=== PATIENT | male | born 1945 | race Caucasian/White ===

== ENCOUNTER 2019-06-13 16:11 | Inpatient (IN) | payer MEDICARE ==
[~2019-06-13] VITALS: Ht 157.5 cm; Wt 55.4 kg
[2019-06-13 17:10] LABS: BASO % 0.7 % (0.0-2.0); EOS # 0.1 (0.0-0.7); EOS % 1.4 % (0-4.0); GRAN # 5.1 (1.4-6.5); GRAN % 85.9 % (42.2-75.2); HEMOGLOBIN 16.9 g/dl (13.5-18.0); LYMPH # 0.4 (1.2-3.4); MEAN CELL VOLUME 85 fl (80.0-100.0); MEAN CORPUSCULAR HEMOGLOBIN 27 pg (27.0-31.0); MEAN CORPUSCULAR HGB CONC 32 g/dl (33.0-37.0); MEAN PLATELET VOLUME 9.4 fl (7.4-10.4); MONO # 0.3 (0.1-0.6); MONO % 5.1 % (1.7-9.3); PLATELET COUNT 321 K/mm3 (130-400); RED BLOOD COUNT 6.34 M/mm3 (4.20-5.60); REDCELL DISTRIBUTION WIDTH-CV 19.6 % (11.5-14.5)
[2019-06-13 17:12] LABS: HEMATOCRIT 53.7 % (42.0-52.0)
[2019-06-13] MEDS ORDERED: ASPIRIN 81M81 MG/TA2 PO (17:14)
[2019-06-13 17:15] LABS: INR 1.2 (0.8-3.0); PROTHROMBIN TIME 14.3 SECONDS (9.7-12.8)
[2019-06-13 17:18] LABS: PARTIAL THROMBOPLASTIN TIME 33.7 SECONDS (26.0-37.0)
[2019-06-13 17:22] LABS: ALBUMIN 3.5 gm/dL (3.5-5.0); BILIRUBIN,TOTAL 1.9 mg/dL (0.0-1.0); C-REACTIVE PROTEIN 2.9 mg/dL (0.0-0.9); CALCIUM 8.6 mg/dL (8.4-10.2); CREATININE, serum 0.77 (0.66-1.25); MAGNESIUM 2.2 mg/dL (1.6-2.3); PHOSPHOROUS 3.7 mg/dL (2.5-4.5); POTASSIUM 4.6 mmol/L (3.4-5.0); TOTAL PROTEIN 7.2 gm/dL (6.4-8.2)
[2019-06-13 17:56] LABS: TROPONIN-I 0.018 ng/mL (0.000-0.035)
[2019-06-13 19:26] LABS: ARTERIAL BLD GAS O2 SATURATION 98.4 % (92-100); ARTERIAL BLD GAS TCO2 CT 30.1; ARTERIAL BLOOD GAS BASE EXCESS 0.4 (-2-2); ARTERIAL BLOOD GAS HCO3 28.3 meq/L (22-26); ARTERIAL BLOOD GAS PCO2 58.8 mmHg (35-45)
[2019-06-13 19:27] LABS: ARTERIAL BLOOD GAS PO2 135.1 mmHg (80-100)
[2019-06-13 20:51] VITALS: BP 99/62; PULSE 93; TEMP 98.4
[2019-06-13 22:29] LABS: ARTERIAL BLD GAS O2 SATURATION 95.8 % (92-100); ARTERIAL BLD GAS TCO2 CT 26.2; ARTERIAL BLOOD GAS BASE EXCESS -3.1 (-2-2); ARTERIAL BLOOD GAS HCO3 24.6 meq/L (22-26); ARTERIAL BLOOD GAS PCO2 53.7 mmHg (35-45); ARTERIAL BLOOD GAS PO2 90.6 mmHg (80-100); ARTERIAL BLOOD GAS pH 7.28 (7.35-7.45)
[2019-06-14] VITALS (748 sets, daily range): BP systolic 97–130; BP diastolic 66–89; PULSE 60–100; TEMP 97.5–98.2; O2SAT 58–100
--- NOTE | 2019-06-14 00:04 | NUR ---
PT CHERRI SCANNED AND ONLY 100 ML RESULTED, REPORTED TO CAMRYN OROZCO, NO ORDERS GIVEN AT THIS TIME THERE IS A CONCERN FOR CHF. WILL CONTINUE TO MONITOR.
--- NOTE | 2019-06-14 00:05 | NUR ---
2010 - REPORT RECEIVED FROM TAMIKO ORTIZ. 2025 - PT ARRIVED IN UNIT, VSS, DENIES PAIN, ON 0XYMASK AT 5 LPM AND SATTING AT 93-94%. 2119 - PT ON BIPAP INITIALLY AT 35% BUT THEN WAS INCREASED TO 40% TO MAINTAIN SATS ABOVE 92%.
[2019-06-14 01:07] LABS: ARTERIAL BLOOD GAS BASE EXCESS 0.9 (-2-2); ARTERIAL BLOOD GAS HCO3 27.4 meq/L (22-26); ARTERIAL BLOOD GAS PO2 85.2 mmHg (80-100); ARTERIAL BLOOD GAS pH 7.35 (7.35-7.45)
[2019-06-14 04:48] LABS: HEMATOCRIT 47.7 % (42.0-52.0); MEAN CORPUSCULAR HEMOGLOBIN 26 pg (27.0-31.0); MEAN CORPUSCULAR HGB CONC 31 g/dl (33.0-37.0); MEAN PLATELET VOLUME 9.5 fl (7.4-10.4); PLATELET COUNT 244 K/mm3 (130-400); RED BLOOD COUNT 5.61 M/mm3 (4.20-5.60); REDCELL DISTRIBUTION WIDTH-CV 18.8 % (11.5-14.5)
[2019-06-14 04:50] LABS: HEMOGLOBIN 14.8 g/dl (13.5-18.0); MEAN CELL VOLUME 8 fl (80.0-100.0)
[2019-06-14 04:58] LABS: CALCIUM 8.3 mg/dL (8.4-10.2); CHOLESTEROL RISK RATIO 5.1; CREATININE, serum 0.63 (0.66-1.25); POTASSIUM 3.9 mmol/L (3.4-5.0)
[2019-06-14 05:17] LABS: ANISOCYTOSIS 1+; BAND 22 % (0-10); LYMPHOCYTE 7 % (20.0-51.0); NEUTROPHILS 70 % (42.0-75.2); PLATELET ESTIMATE NORMAL (NORMAL)
--- NOTE | 2019-06-14 06:28 | NUR ---
PT HAS BEEN BRADYCARDIC 45 TO LOW 50'S AND ONCE DIPPED DOWN TO LOW 30'S PER TELE. PT'S VSS, ASYMPTOMATIC. E CARE NOTIFIED, NO NEW ORDERS GIVEN AT THIS TIME, WILL CONTINUE TO MONITOR.
--- NOTE | 2019-06-14 07:27 | NUR ---
REPORT GIVEN TO TAMIKO GARCIA.
--- NOTE | 2019-06-14 08:00 | NUR ---
Shift assessment complete at this time. Plan of care reviewed at bedside with patient. Additional time taken to address any other needs or concerns. Vitals stable at this time. Pt denies pain or any other discomforts. Bed in low position, call light within reach, will continue to monitor.
--- NOTE | 2019-06-14 08:03 | NUR ---
PT SITTING UP EATING BREAKFAST AT THIS TIME. CARDIOPULM AWARE OF ABG ORDER.
--- NOTE | 2019-06-14 08:12 | NUR ---
DR MARISCAL NOTIFIED OF SURGICAL CONSULT FOR HERNIA.
[2019-06-14 08:26] LABS: ARTERIAL BLD GAS O2 SATURATION 90.3 % (92-100); ARTERIAL BLD GAS TCO2 CT 30.4; ARTERIAL BLOOD GAS BASE EXCESS 2.3 (-2-2); ARTERIAL BLOOD GAS HCO3 28.8 meq/L (22-26); ARTERIAL BLOOD GAS PCO2 52.1 mmHg (35-45); ARTERIAL BLOOD GAS PO2 60.6 mmHg (80-100); ARTERIAL BLOOD GAS pH 7.36 (7.35-7.45)
--- NOTE | 2019-06-14 13:12 | NUR ---
community placement worker met with patient to discuss discharge planning. Patient states he lives alone and that he is independent with his activities of daily living. Patient states he has not seen a physician for 20 years. Worker left a message for patient's daughter, Sayra, to discuss discharge planning further. Will await therapy evaluations to help with discharge planning. Patient would benefit from a skilled placement for rehab upon discharge. Will discuss need to establish a primary care provider with daughter, Sayra.
--- NOTE | 2019-06-14 13:27 | NUR ---
make ready worker spoke with ALFA Grady, and confirmed that therapy recommends skilled placement upon discharge. Worker spoke with Sayra, daughter and confirms that patient has not seen a physician in over 20 years and has not made an advance directive. Worker advised that a skilled placement is recommended for rehab upon discharge and left Sayra the Medicare.gov list of fci facilities. Sayra is currently at work and will obtain list this evening and discuss with patient. Case Management will follow up on Monday to secure choice form and make referrals. Worker also left a durable power of commercial manager form as patient states patient desires to complete.
--- NOTE | 2019-06-14 19:30 | NUR ---
Received report from TAMIKO Randall.
--- NOTE | 2019-06-14 19:59 | NUR ---
Bedside report given to TAMIKO Parmar.
--- NOTE | 2019-06-14 23:14 | NUR ---
assumed care from TAMIKO Parmar.
[2019-06-15] VITALS (731 sets, daily range): BP systolic 125–158; BP diastolic 80–97; PULSE 51–78; TEMP 97.5–98.1; O2SAT 63–100
[2019-06-15 05:08] LABS: HEMOGLOBIN 14.8 g/dl (13.5-18.0); MEAN CORPUSCULAR HEMOGLOBIN 26 pg (27.0-31.0); MEAN CORPUSCULAR HGB CONC 32 g/dl (33.0-37.0); MEAN PLATELET VOLUME 9.9 fl (7.4-10.4); PLATELET COUNT 262 K/mm3 (130-400); RED BLOOD COUNT 5.61 M/mm3 (4.20-5.60); REDCELL DISTRIBUTION WIDTH-CV 18.8 % (11.5-14.5)
[2019-06-15 05:09] LABS: MEAN CELL VOLUME 84 fl (80.0-100.0)
[2019-06-15 05:13] LABS: CALCIUM 8.6 mg/dL (8.4-10.2); CREATININE, serum 0.44 (0.66-1.25); POTASSIUM 4.4 mmol/L (3.4-5.0)
--- NOTE | 2019-06-15 05:28 | NUR ---
PT'S BP AT 170'S, PT ASYMTOMATIC. CIARA OROZCO NOTIFIED AND ORDERED ABG. RT AWARE. WILL CALL EXECUTIVE SOUS CHEF FOR RESLUTS OF ABG.
[2019-06-15 05:45] LABS: ANISOCYTOSIS 2+; BAND 37 % (0-10); LYMPHOCYTE 6 % (20.0-51.0); NEUTROPHILS 56 % (42.0-75.2); OVALOCYTES 1+; PLATELET ESTIMATE NORMAL (NORMAL)
[2019-06-15 05:47] LABS: BURR CELLS 1+
[2019-06-15 05:57] LABS: ARTERIAL BLD GAS TCO2 CT 29.8; ARTERIAL BLOOD GAS BASE EXCESS 5.2 (-2-2); ARTERIAL BLOOD GAS HCO3 28.7 meq/L (22-26); ARTERIAL BLOOD GAS PCO2 38.3 mmHg (35-45); ARTERIAL BLOOD GAS PO2 73.3 mmHg (80-100); ARTERIAL BLOOD GAS pH 7.49 (7.35-7.45)
--- NOTE | 2019-06-15 07:15 | NUR ---
BEDSIDE REPORT RECEIVED FROM TAMIKO ULLOA. PATIENT LYING IN BED WITH OXYMASK IN PLACE. HE HAS NO COMPLAINTS. RT IN ROOM TO DO TREATMENT. CARE TAKEN OVER AT THIS TIME.
--- NOTE | 2019-06-15 14:57 | NUR ---
REPORT GIVEN TO TAMIKO DWYER ON MEDICAL. PATIENT WILL TRANSFER UP TO ROOM 354
--- NOTE | 2019-06-15 17:56 | NUR ---
Pt up to room 354 at 1615 by bed. Pt holding on to both side rails with tight grasp. Pt is alert and disoriented. Pt unable to state where he is, situation, time. pt thinks daughter is "in the other room". Per report prior to coming to floor, pt was asking nurse to "get out of his house". Pt denies pain at this time, has LAC IV INT flushes w/o complications. Pt has poor hygiene, refused care at this time. Pt refused anything to drink. Pt on 3L NC, satting >92%. Heart RRR. breathing is even and unlabored. No other concerns at this time.
[2019-06-15 20:24] LABS: COLLECTION METHOD CLEAN CATCH
[2019-06-15 20:57] LABS: MUCOUS Present /lpf; PH 7 (5-8); SQUAMOUS EPITHELIAL None Seen /hpf; URINE APPEARANCE Clear; URINE BACTERIA None Seen /hpf; URINE BILIRUBIN Negative (NEGATIVE); URINE BLOOD Negative (NEGATIVE); URINE COLOR Yellow; URINE GLUCOSE Negative (NEGATIVE); URINE KETONE Negative (NEGATIVE); URINE LEUKOCYTE ESTERASE Negative (NEGATIVE); URINE NITRATE Negative (NEGATIVE); URINE PROTEIN(semi-quant) Negative (NEGATIVE); URINE RBC 0-2 /hpf; URINE UROBILINOGEN >=4.0 mg/dL (NEGATIVE)
[2019-06-16 05:01] VITALS: BP 114/77; PULSE 68; TEMP 97.3
--- NOTE | 2019-06-16 06:18 | NUR ---
PT LEFT BiPAP ON UP UNTIL APPROX. 0430. PT SWITCHED TO O2 VIA N.C. WILL TRY TO RE-START PT'S IV AT END OF SHIFT.
[2019-06-16 08:40] VITALS: BP 124/75; PULSE 65; TEMP 97.4
--- NOTE | 2019-06-16 11:43 | NUR ---
Pt assessment completed and charted. Medications administered per JUL. Nicotine patch placed on Lt shoulder, old patch from Lt upper shoulder/back removed. Pt is alert, partially oriented, family at bedside. Pt has RH INT IV flushes w/o complications. Pt on 4L NC. pt did walk w/ therapy, sats dropped to mid 70s. Pt put on 6L NC, sats began to rise once back in room. Pt walked w/ walker, ambulated well. Pt has poor hygiene, skin is very dry, old, tough, scaling and flaking all over. Bruising to BUE. Stage 2 ulcer to coccyx, very small w/ allevyn dressing covering, CDI. No other concerns at this time.
[2019-06-16 13:38] VITALS: BP 109/75; PULSE 84; TEMP 98
[2019-06-16 16:00] VITALS: BP 135/87; PULSE 88; TEMP 97.4
[2019-06-16 19:36] VITALS: BP 132/86; PULSE 79; TEMP 97.4
[2019-06-17 01:01] VITALS: BP 102/72; PULSE 73; TEMP 97.5
--- NOTE | 2019-06-17 02:41 | NUR ---
PT REMOVED BIPAP WITHOUT THIS RN KNOWING. O2 SATS AT 67%, AFTER PUTTING NASAL CANNULA BACK ON RETURNED TO >90%. WILL CONTINUE TO MONITOR THROUGHOUT THE NIGHT.
[2019-06-17 05:11] VITALS: BP 124/72; PULSE 71; TEMP 97.7
[2019-06-17 06:46] LABS: HEMATOCRIT 48.3 % (42.0-52.0); HEMOGLOBIN 14.4 g/dl (13.5-18.0); MEAN CELL VOLUME 88 fl (80.0-100.0); MEAN CORPUSCULAR HEMOGLOBIN 26 pg (27.0-31.0); MEAN CORPUSCULAR HGB CONC 30 g/dl (33.0-37.0); MEAN PLATELET VOLUME 9.6 fl (7.4-10.4); PLATELET COUNT 240 K/mm3 (130-400); REDCELL DISTRIBUTION WIDTH-CV 19.2 % (11.5-14.5)
[2019-06-17 07:02] LABS: ALBUMIN 3.1 gm/dL (3.5-5.0); BILIRUBIN,TOTAL 0.7 mg/dL (0.0-1.0); CALCIUM 8.7 mg/dL (8.4-10.2); CREATININE, serum 0.73 (0.66-1.25); POTASSIUM 4.7 mmol/L (3.4-5.0); TOTAL PROTEIN 6.2 gm/dL (6.4-8.2)
[2019-06-17 07:30] LABS: BAND 16 % (0-10); LYMPHOCYTE 3 % (20.0-51.0); NEUTROPHILS 80 % (42.0-75.2); OVALOCYTES 1+; PLATELET ESTIMATE NORMAL (NORMAL)
--- NOTE | 2019-06-17 08:00 | NUR ---
Patient in bed resting. Alert and oriented x 3. Assessment complete. Patient had nasal cannula out of nose, placed cannula on patient and encouraged patient to keep in place. Sacral ulcer with mepilex in place. BLE appear discolored with skin flaking. Denies pain at this time. Denies further needs at this time.
[2019-06-17 08:33] VITALS: BP 112/70; PULSE 62; TEMP 97.7
[2019-06-17 12:30] VITALS: BP 134/82; PULSE 69; TEMP 97.6
--- NOTE | 2019-06-17 13:54 | NUR ---
Pipelines Superintendent met with patient briefly to follow up on therapy's recommendation for SNF upon discharge. Patient states he and his daughter have been discussing this but did not indicate a choice had been made. 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 ALANA explained to Sayra that SNF placement would be short term to get stronger before returning home. Sayra states she will reapproach the subject with her father after work tonight. Sayra reports patient lives with her. ALANA provided update to CAMRYN Carrero. ALANA to continue to follow.
[2019-06-17 16:48] VITALS: BP 148/91; PULSE 69; TEMP 97.5
--- NOTE | 2019-06-17 19:02 | NUR ---
Patient has done well throuhout the day, has been up to restroom with stand by assist. Denies pain at this time. Assisted patient to call daughter, intermittently confused throughout the day. Denies further needs at this time. Reported off to slot shift manager.
[2019-06-18] VITALS (12 sets, daily range): BP systolic 124–170; BP diastolic 57–100; PULSE 56–73; TEMP 97.5–98.2
--- NOTE | 2019-06-18 07:37 | NUR ---
Pt had a difficult night regarding sleep. He stayed awake the majority of the night. BiPap compliant until he began to get frustrated with the sound it made. Contacted RT to take it off, and put his O2 via NC back on. The pt has been more independent by sitting on the bedside to use his urinal. Still forgetful using the call light. Bed alarm is always turned on, however, the pt knows how to turn it off, and does so. Report given to TAMIKO Little. No further concerns at this time.
[2019-06-18 09:15] LABS: BASO % 0.1 % (0.0-2.0); EOS # 0.1 (0.0-0.7); EOS % 0.7 % (0-4.0); GRAN # 6.2 (1.4-6.5); GRAN % 86.1 % (42.2-75.2); HEMATOCRIT 48.6 % (42.0-52.0); HEMOGLOBIN 14.8 g/dl (13.5-18.0); LYMPH # 0.5 (1.2-3.4); LYMPH % 7.2 % (20.0-51.0); MEAN CELL VOLUME 87 fl (80.0-100.0); MEAN CORPUSCULAR HEMOGLOBIN 27 pg (27.0-31.0); MEAN CORPUSCULAR HGB CONC 31 g/dl (33.0-37.0); MEAN PLATELET VOLUME 9.2 fl (7.4-10.4); MONO # 0.4 (0.1-0.6); MONO % 4.9 % (1.7-9.3); PLATELET COUNT 197 K/mm3 (130-400); RED BLOOD COUNT 5.58 M/mm3 (4.20-5.60)
--- NOTE | 2019-06-18 09:15 | NUR ---
Patient has remained NPO this AM for CT Needle Guided BX. Radiology nurse will come to talk with patient before signing consent. Patient's daughter is here. Burglar Alarm Installer made aware. Patient is alert and oriented x 3. Denies any pain/discomfort. Skin w/d. Very dry scaly skin all over; dandy lower extremities. Lungs diminshed throughout; No cough at this time. Resp even/unlabored. HR strong/regular. Abd soft with bowel sounds x 4 quads. PPP. No pedal edema noted. No other needs at this time.
[2019-06-18 09:24] LABS: CALCIUM 8.8 mg/dL (8.4-10.2); CREATININE, serum 0.7 (0.66-1.25); POTASSIUM 4.1 mmol/L (3.4-5.0)
--- NOTE | 2019-06-18 11:27 | NUR ---
Jacket Changer met with patient and patient's daughter, Sayra to follow up on discharge plan. SW reviewed PT recommendation for SNF and explained to patient that it would be short term for therapy. Patient is agreeable and reviewed Medicare.gov list of SNFs in his area. SW presented Patient Preference form and patient selected [facility] first preference and [facility] as second preference. Patient's daughter, Sayra provided signature. SW placed form in chart. Patient states he wants to complete DPOA-HC paperwork and wants to designate his daughter Sayra. Patient verbalized understanding about what he will be signing. SW assisted patient in filling out DPOA-HC form then witnessed patient signature along with TAMIKO Gaines-CM. SW provided patient with original and copies and placed a copy in patient chart. ALANA contacted Juan at [facility] and Cristin at [facility] then faxed referrals. SW to continue to follow.
--- NOTE | 2019-06-18 13:22 | NUR ---
Left the floor at this time for CT guided lung bx
--- NOTE | 2019-06-18 13:24 | NUR ---
PT BROUGHT INTO ROOM ON BED. TRANSFERED TO CT TABLE. O2 @ 6L/NC. MONITORING EQUIPMENT PLACED. IMAGES TAKEN AND SENT.
--- NOTE | 2019-06-18 13:49 | NUR ---
PROCEDURE COMPLETED. PT DID WELL. NO PNUEMO NOTED. CXR IN 1 HOUR. PT TAKEN BACK UPSTAIRS TO ROOM 354. REPORT TO TATA MORRISON
--- NOTE | 2019-06-18 14:10 | NUR ---
Basin Tender was contacted by Cristin at [facility] who advised they will follow referral. SW to continue to follow.
--- NOTE | 2019-06-18 14:30 | NUR ---
Patient has returned from CT post CT guided right lung bx. Patient is resting in bed. No distress or shortness of air noted. Bandaid intact just to the left of the right nipple; clean, dry and intact. Patient denies any c/o pain or discomfort
--- NOTE | 2019-06-18 17:58 | NUR ---
Patient noted to be more forgetful this PM. Asking for his daughter when she was just here to visit. He reorients easily. Continues to have work of breathing with activity. At rest he is noted less labored. 02 sats 98% on 4L/NC. Patient denies all pain. Bandaid remains intact with no drainage. Lungs remian diminshed in bilateral lobes. No needs at this time. Family in to visit
--- NOTE | 2019-06-18 19:05 | NUR ---
Report rcvd from TAMIKO Little. Pt's bandaid covering bx incision is still intact. No reddness or swelling to the right chest. Pt lungs sounds remain diminished, with slight extra effort to breathe. Pt is saturating 91% consistently on 4L O2. Assessment complete. Pt voices no needs or concerns at this time. Call light within reach. No further concerns at this time.
--- NOTE | 2019-06-18 23:45 | NUR ---
Pt is refusing BiPap tonight, replaced his Nasal Cannula and contacted RT. RT is following.
--- NOTE | 2019-06-19 03:11 | NUR ---
PATIENT REFUSED TREATMENT
[2019-06-19 04:19] VITALS: BP 124/81; PULSE 77; TEMP 97.7
[2019-06-19 07:52] LABS: BASO % 0.2 % (0.0-2.0); EOS # 0.1 (0.0-0.7); EOS % 1.1 % (0-4.0); GRAN # 5.3 (1.4-6.5); GRAN % 86.6 % (42.2-75.2); HEMOGLOBIN 15.5 g/dl (13.5-18.0); LYMPH # 0.4 (1.2-3.4); LYMPH % 6.9 % (20.0-51.0); MEAN CELL VOLUME 87 fl (80.0-100.0); MEAN CORPUSCULAR HEMOGLOBIN 27 pg (27.0-31.0); MEAN CORPUSCULAR HGB CONC 30 g/dl (33.0-37.0); MEAN PLATELET VOLUME 9.2 fl (7.4-10.4); MONO # 0.3 (0.1-0.6); MONO % 4.2 % (1.7-9.3); PLATELET COUNT 208 K/mm3 (130-400); RED BLOOD COUNT 5.86 M/mm3 (4.20-5.60)
[2019-06-19 07:54] VITALS: BP 151/88; PULSE 78; TEMP 97.7
[2019-06-19 08:03] LABS: CALCIUM 8.7 mg/dL (8.4-10.2); CREATININE, serum 0.62 (0.66-1.25); POTASSIUM 4.2 mmol/L (3.4-5.0)
[2019-06-19] MEDS ORDERED: PREDNISONE10 MG PO (10:21)
[2019-06-19] MEDS ORDERED: NICODERM C21 MG/PATC TD (10:22)
[2019-06-19] MEDS ORDERED: PERFOROMIS20 MCG/2 M IH (10:23)
[2019-06-19] MEDS ORDERED: GLUCOPHAGE500 MG/TAB PO (10:24)
[2019-06-19] MEDS ORDERED: PROAIR HFA0.09 MG/AC IH (10:24)
--- NOTE | 2019-06-19 10:25 | NUR ---
PT UP TO RECLINER FOR BREAKFAST. TO BR VOIDED AND HAD SM BM. RETURNED TO RECLINER WITH SBAX1. FAMLIY HERE AT BEDSIDE. POSSIBLE DISCHARGE TO SNF LATER TODAY.
[2019-06-19] MEDS ORDERED: HCTZ12.5TAB PO (10:26)
--- NOTE | 2019-06-19 12:08 | NUR ---
PT TO TRANSFER TO [facility] REPORT CALLED TO DIETER MORRISON.
--- NOTE | 2019-06-19 12:08 | NUR ---
REPORT TO DIETER MORRISON.
--- NOTE | 2019-06-19 14:58 | NUR ---
Videotape Sales Representative was notified by Juan at [facility] that they can accept referral and have authorization from [facility]. ALANA attended clinical rounds with the team and patient to discharge today. ALANA contacted Cristin at [facility] who advised they were still following referral and requested updates. ALANA faxed updates. ALANA met with patient and patient's daughter Sayra and advised that [facility] can accept and that [facility] was still reviewing updates. Patient's daughter stated that she was thought it was acceptable to go to [facility] if they were ready to go, but that it was ultimately up to patient. SW spoke with patient who stated he was in agreeance to go to [facility]. SW asked patient if he was sure and he confirmed again he was in agreeance. SW presented and explained IM form to patient who verbalized understanding and provided signature. SW placed form on chart. SW followed up with patient and patient's daughter on setting up primary care. Patient's daughter advised it was up to patient. Patient was provided with list of primary care physicians in [place] and patient selected [facility] and stated he had no preference between Dr. Faith and Dr. Richmond. ALANA contacted [facility] and set up an appointment for 06/26/[address] Richmond. ALANA provided appointment to Juan at [facility] and faxed discharge orders. ALANA set up transportation for 1200 and provided transport time to patient, patient's daughter, and RN. ALANA notified Cristin at [facility] that patient to discharge to [facility] and thanked her for reviewing referral. No additional needs at this time.
== END 2019-06-19 12:30 | DRG 189 ==
LOC: COL.ER 16:11 → ICU 18:21 → MEDICAL 18:21 → ICU 18:48 → MEDICAL 06-15 16:08
PROVIDERS: Emergency Medicine; Internal Medicine Pulmonary Disease; Nurse Practitioner Family; Physician Assistant; Student in an Organized Health Care Education/Training Program; ADMIT Internal Medicine
PROC: 0BBD3ZX Excision of Right Middle Lung Lobe, Percutaneous Approach, Diagnostic (ICD-10-PCS; principal; 2019-06-13)
DX: J96.01 Acute respiratory failure with hypoxia (principal); I50.33 Acute on chronic diastolic (congestive) heart failure; E43 Unspecified severe protein-calorie malnutrition; R65.10 Systemic inflammatory response syndrome (SIRS) of non-infectious origin without acute organ dysfunction; E87.2 Acidosis; E44.1 Mild protein-calorie malnutrition; J96.02 Acute respiratory failure with hypercapnia; R91.8 Other nonspecific abnormal finding of lung field; E11.9 Type 2 diabetes mellitus without complications; I11.0 Hypertensive heart disease with heart failure; F03.90 Unspecified dementia, unspecified severity, without behavioral disturbance, psychotic disturbance, mood disturbance, and anxiety; K40.90 Unilateral inguinal hernia, without obstruction or gangrene, not specified as recurrent
CPT/HCPCS: 99223-AI; 99232-AI; 99233-AI; 99239; A4216; J0456; J0696; J1650; J1815; J2920; J2930; J7030; J7050; J7120; J7512

== ENCOUNTER → 2019-07-05 | Outpatient (CLI) | payer MEDICARE ==
[~2019-07-05] MED LIST: ASPIRIN 81M81 MG/TA2 PO; GLUCOPHAGE500 MG/TAB PO; HCTZ12.5TAB PO; NICODERM C21 MG/PATC TD; PERFOROMIS20 MCG/2 M IH; PREDNISONE10 MG PO; PROAIR HFA0.09 MG/AC IH
[2019-07-05 20:36] LABS: HEMATOCRIT 48.2 % (42.0-52.0); HEMOGLOBIN 15.4 g/dl (13.5-18.0); MEAN CELL VOLUME 84 fl (80.0-100.0); MEAN CORPUSCULAR HEMOGLOBIN 27 pg (27.0-31.0); MEAN CORPUSCULAR HGB CONC 32 g/dl (33.0-37.0); MEAN PLATELET VOLUME 10.2 fl (7.4-10.4); PLATELET COUNT 507 K/mm3 (130-400); RED BLOOD COUNT 5.72 M/mm3 (4.20-5.60); REDCELL DISTRIBUTION WIDTH-CV 19.1 % (11.5-14.5)
[2019-07-05 20:55] LABS: ALBUMIN 3.7 gm/dL (3.5-5.0); CALCIUM 9.3 mg/dL (8.4-10.2); CREATININE, serum 0.51 (0.66-1.25); POTASSIUM 4.7 mmol/L (3.4-5.0); TOTAL PROTEIN 6.7 gm/dL (6.4-8.2)
[2019-07-05 21:16] LABS: ANISOCYTOSIS 1+; BAND 10 % (0-10); EOSINOPHIL 1 % (0-4); LYMPHOCYTE 8 % (20.0-51.0); MICROCYTOSIS 1+; NEUTROPHILS 77 % (42.0-75.2); PLATELET ESTIMATE INCREASED (NORMAL)
[2019-07-05 21:24] LABS: THYROID STIMULATING HORMONE 0.738 uIU/mL (0.465-4.680)
== END ==
LOC: ZLAB.STJ 17:24 → COL.LAB 17:24
PROVIDERS: Family Medicine
DX: I50.33 Acute on chronic diastolic (congestive) heart failure (principal)

== ENCOUNTER 2019-09-04 22:37 | Inpatient (IN) | payer MEDICARE ==
[~2019-09-04] VITALS: Ht 154.9 cm; Wt 55.0 kg
[2019-09-04] MEDS ORDERED: SPIRIVA RE2.5 MCG/Ac IH (23:00)
[2019-09-04 23:11] LABS: BASO % 0.4 % (0.0-2.0); EOS # 0.3 (0.0-0.7); GRAN # 8.3 (1.4-6.5); GRAN % 78.3 % (42.2-75.2); HEMATOCRIT 43.2 % (42.0-52.0); HEMOGLOBIN 14.1 g/dl (13.5-18.0); LYMPH # 0.8 (1.2-3.4); LYMPH % 7.6 % (20.0-51.0); MEAN CELL VOLUME 88 fl (80.0-100.0); MEAN CORPUSCULAR HEMOGLOBIN 29 pg (27.0-31.0); MEAN CORPUSCULAR HGB CONC 33 g/dl (33.0-37.0); MEAN PLATELET VOLUME 9.4 fl (7.4-10.4); MONO # 0.7 (0.1-0.6); MONO % 6.7 % (1.7-9.3); PLATELET COUNT 549 K/mm3 (130-400); RED BLOOD COUNT 4.93 M/mm3 (4.20-5.60); REDCELL DISTRIBUTION WIDTH-CV 17.6 % (11.5-14.5)
[2019-09-04 23:19] LABS: ARTERIAL BLD GAS O2 SATURATION 96.1 % (92-100); ARTERIAL BLD GAS TCO2 CT 31.4; ARTERIAL BLOOD GAS PCO2 45.6 mmHg (35-45); ARTERIAL BLOOD GAS PO2 82.6 mmHg (80-100); ARTERIAL BLOOD GAS pH 7.44 (7.35-7.45)
[2019-09-04 23:20] LABS: ALBUMIN 3.8 gm/dL (3.5-5.0); BILIRUBIN,TOTAL 0.8 mg/dL (0.0-1.0); CALCIUM 9.9 mg/dL (8.4-10.2); CREATININE, serum 0.56 (0.66-1.25); POTASSIUM 4.2 mmol/L (3.4-5.0); TOTAL PROTEIN 7.3 gm/dL (6.4-8.2)
[2019-09-04 23:33] LABS: TROPONIN-I 0.072 ng/mL (0.000-0.035)
[2019-09-05] VITALS (715 sets, daily range): BP systolic 100–129; BP diastolic 63–78; PULSE 64–98; TEMP 97.5–98; O2SAT 42–100
--- NOTE | 2019-09-05 01:05 | NUR ---
Report received from TAMIKO Hines in the ED. Patient will be brought over soon.
--- NOTE | 2019-09-05 01:40 | NUR ---
Patient arrives at this time via ED cart. Patient arrives with clothing, shoes, and his personal wood cane. Patient moves self to unit bed via slide. Patient becomes short of breath. Patient had removed oxymask. Replaced and O2 sats slowly came back to 94% on 10L OM. Assessment complete. Patients lungs have fine crackles and are diminished in all monroy. HR and rhythm are regular with normal S1 and S2 heard. Bowel sounds active x4. patient has generalized bruising all over his extremities with a few on his trunk. Patient has mostly healed wounds on both his shins. They are tight and warm to the touch. Patient states that he has been seeing wound care and that "a lady comes and puts stuff on them". Patients coccyx is reddened. Patient has a large inguinal hernia with a distended scrotum. Patient states it is not painful nor is he having any pain. He is short of breath with any exertion. Changed patient to a HFNC to help with saturations and patients sats improved. Patient is alert and only oriented to self, he rambles when speaking and gets off topic easily. He does not know where he is or in what town, but then later speaks about [facility] and his daughter that lives in [place]. He doesnt not understand why he is here in the hospital. Explained several times, patient claims to understand. Patient is refusing to put on the gown right now or to remove his pants. Patient does have a brief on, and it is dry. Patient has no further needs at this time. Patient does have yellow socks on and bed alarm placed. signage outside the door for isolation precautions and fall risk. Will continue to monitor. Call light within reach.
[2019-09-05] MEDS ORDERED: ONE-A-DAY ESSE1 EACH PO (03:53)
[2019-09-05] MEDS ORDERED: GERI HYDROLAC TOP (03:54)
[2019-09-05] MEDS ORDERED: VITAMIND3 5000 PO (03:55)
[2019-09-05] MEDS ORDERED: B-121000 MCG PO (03:55)
[2019-09-05] MEDS ORDERED: FOLIC ACID 11 MG/TA1 PO (03:56)
--- NOTE | 2019-09-05 04:30 | NUR ---
Patient has calmed down now and is no longer pulling at lines. he is resting comfortably watching TV. No further needs at this time. Will continue to monitor. Call light within reach. Bed alarm on.
--- NOTE | 2019-09-05 07:46 | NUR ---
Bedside report given to TAMIKO Randall
--- NOTE | 2019-09-05 08:00 | NUR ---
Shift assessment complete at this time. Plan of care reviewed at bedside with patient. Additional time taken to address any needs or concerns of patient or family. Vitals stable at this time. Pt denies pain or any other discomforts. Bed in low position, call light within reach, will continue to monitor.
--- NOTE | 2019-09-05 09:59 | NUR ---
ALANA contacted the patient's daughter, Sayra (ph#[phone]), to discuss discharge plan. The patient has been residing at [facility] for SNF. The patient's DPOA-HC is in EMR. His DPOA-HC is Sayra. Sayra reports that the plan is for the patient to return back to [facility] upon discharge. The patient is pending results for COVID-19. ALANA notified Juan at [facility]. ALANA to fax updates to [facility] and will continue to follow.
--- NOTE | 2019-09-05 12:00 | NUR ---
Pt resting comfortably in bed. Denies pain or any other discomforts. Vitals stable at this time. Bed in low position, call light within reach, will continue to monitor.
--- NOTE | 2019-09-05 16:00 | NUR ---
Pt resting comfortably in bed. Denies pain or any other discomforts. Bed in low position, call light within reach. Vitals stable at this time. Will continue to monitor.
--- NOTE | 2019-09-05 19:29 | NUR ---
Bedside report given to TAMIKO Pulido.
--- NOTE | 2019-09-05 19:30 | NUR ---
RECEIVED REPORT FROM TAMIKO SHI. PT SITTING UP IN BED FINISHING UP DINNER. VSS. CALL LIGHT WITHIN REACH. PT WATCHING TV. NO ACUTE S/S OF DISTRESS NOTED.
--- NOTE | 2019-09-05 21:00 | NUR ---
PT ABLE TO STAND WITH NURSE HOLDING HANDS OR USING CANE BUT IS UNSTEADY IF NOT HOLDING ONTO SOMETHING. PT ABLE TO STATE YEAR IS 2020 AND IS IN THE HOSPITAL BUT IS UNABLE TO RECALL WHICH HOSPITAL OR WHO PRESIDENT IS. PT KNOWS HE LIVES AT [facility]. PT REQUESTS NURSE TO LET HIM KNOW IF HE SEEMS TO BE REPEATING HIMSELF. PT REQUESTS A SNACK, GIVEN. VSS. PT APPEARS TO GET INCREASE SHOB WITH STANDING BUT IS ABLE TO TAKE NURSE'S INSTRUCTION ON HOW TO SLOW DOWN HIS BREATHING. PT NOTED TO BE ON 6L VIA HFNC. NO INCREASE IN HR WITH STANDING. PT ABLE TO HELP IS BATH. ASSISTED BACK TO BED. CALL LIGHT WITHIN REACH.
[2019-09-06] VITALS (510 sets, daily range): BP systolic 106–158; BP diastolic 68–81; PULSE 64–83; TEMP 97.5–98.2; O2SAT 76–100
[2019-09-06 06:15] LABS: MEAN CELL VOLUME 91 fl (80.0-100.0); MEAN CORPUSCULAR HGB CONC 32 g/dl (33.0-37.0); MEAN PLATELET VOLUME 9.6 fl (7.4-10.4); PLATELET COUNT 475 K/mm3 (130-400); RED BLOOD COUNT 4.03 M/mm3 (4.20-5.60); REDCELL DISTRIBUTION WIDTH-CV 17.5 % (11.5-14.5)
[2019-09-06 06:21] LABS: HEMATOCRIT 36.5 % (42.0-52.0); HEMOGLOBIN 11.7 g/dl (13.5-18.0); MEAN CORPUSCULAR HEMOGLOBIN 29 pg (27.0-31.0)
[2019-09-06 06:32] LABS: BILIRUBIN,TOTAL 0.3 mg/dL (0.0-1.0); CALCIUM 9.1 mg/dL (8.4-10.2); CREATININE, serum 0.52 (0.66-1.25); POTASSIUM 4.2 mmol/L (3.4-5.0)
[2019-09-06 07:19] LABS: BAND 2 % (0-10); EOSINOPHIL 2 % (0-4); LYMPHOCYTE 7 % (20.0-51.0); METAMYELOCYTE 3 % (0-0); NEUTROPHILS 82 % (42.0-75.2); PLATELET ESTIMATE INCREASED (NORMAL)
--- NOTE | 2019-09-06 11:59 | NUR ---
Attempted to call daughter, Sayra Meeks, @ [phone] today after recieving palliative care consult for patient. He is quite confused and in COVID 19 isolation at this point. I did leave message for daughter and hope she will return my call later today.
--- NOTE | 2019-09-06 12:00 | NUR ---
Pt resting comfortably in bed. Denies pain or any other discomforts at this time. Vitals stable at this time. Bed in low position, call light within reach, will continue to monitor.
--- NOTE | 2019-09-06 13:36 | NUR ---
A palliative care consult was ordered. ALANA staffed with Palliative Care, Taylor. Taylor has attempted to contact the patient's daughter, Sayra, to discuss goals of care. ALANA to fax updates to Juan at [facility] and will continue to follow.
--- NOTE | 2019-09-06 13:55 | NUR ---
Again attempted to contact daughter, Sayra @ [phone]. I left a voicemail message again for her with my contact information. There is not another phone number available. Also spoke with Landy Bonilla about situation and she verifies there is only one number for daughter.
--- NOTE | 2019-09-06 15:16 | NUR ---
Finally reached [facility], Sayralucien Meeks by phone. She advised me that they are already working on hospice at the assisted. They are waiting on information from the custodial care insurance and then she will sign the paperwork. She was very displeased that now we were caling her about this as she has already talked about this with [facility] people and shouldn't have to do this again. She is waiting for them to have paperwork for her to sign, she reported. When I asked what I could do to help her, she replied I "could get off the phone and let her eat her lunch"! She was not interested in hearing about what hospice was, whether she could visit her father, hospice organizations, etc and made that very clear that she didn't want to listen to all this. I am really not sure that she understands what hospice is or what is all about. I did report this phone call to Maria T Giron social economist. At this time Sayra states that Allyssa Machuca is working on this and we need to not bother her with this again.
--- NOTE | 2019-09-06 16:06 | NUR ---
Palliative Care Nurse, Taylor, was able to get a hold of the patient's daughter (Sayra). Sayra informed Taylor that she has already had this conversation with [facility] and is under the impression that [facility] is already working on getting him on hospice and that they are waiting on his long-term care insurance to kick in. ALANA notified Juan at [facility] on this. Juan reports that they had the hospice conversation with the daughter, but then he was admitted to the hospital. He states that he will talk to his director, Talita, whose been working with the daughter. He states they will come up with a game plan then update ALANA. ALANA to continue to follow.
--- NOTE | 2019-09-06 19:35 | NUR ---
Assessment complete. Resting in bed, tevevision on. Conversation confused. Denies pain. Denies needs at this time.
[2019-09-07] VITALS (360 sets, daily range): BP systolic 128–152; BP diastolic 82–93; PULSE 74–88; TEMP 97.4–97.9; O2SAT 74–100
--- NOTE | 2019-09-07 12:00 | NUR ---
Patients O2 dropped to 70s, was noted to be on 5L via HFNC. Was increased to 8L without success, increased to 10 and called RT who was able to assist and patient returned to low 90%. Dr. Rodney rounded and saturations were in high 90%, he instructed to decrease oxygen which patient tolerated well.
--- NOTE | 2019-09-07 19:49 | NUR ---
1615 patient sitting on side of bed, O2 saturation in mid 80s, did increase to 8L, did bring patient to low 90s where he remained the rest of the shift. Report given to oncoming nurse.
--- NOTE | 2019-09-07 20:00 | NUR ---
PATIENT APPEARS ALERT AND ORIENTED, UNABLE TO RECALL WHERE HE IS, OR THE SITUATION HE IS IN,CALM REASSURING TO PRESENT TIME, WILL INFORM STAFF HE KNOWS WHATS GOING ON
[2019-09-08] VITALS (23 sets, daily range): BP systolic 103–148; BP diastolic 64–88; PULSE 65–92; TEMP 96.6–97.8; O2SAT 85–100
--- NOTE | 2019-09-08 01:35 | NUR ---
ADMINISTERED ORAL MORPHINE X 2 IN THE LAST 2 HOURS FOR SHORTNESS OF BREATH, PATIENT IS TRYING TO ADAPT TO BIPAP/CANNULA, PATIENT IS COOPERATIVE, jUST STATES "I FEEL LIKE I'M NOT GETTING AIR...
--- NOTE | 2019-09-08 07:45 | NUR ---
Bedside shift report received from TAMIKO Andrade. Patient is sleeping, but easily aroused. Full assessment completed. Vital signs stable. Bed in lowest position, call light within reach, side rails up x3. Patient has no complaints or concerns at this time.
[2019-09-08 14:32] LABS: HEMATOCRIT 41.2 % (42.0-52.0); HEMOGLOBIN 13.5 g/dl (13.5-18.0); MEAN CELL VOLUME 88 fl (80.0-100.0); MEAN CORPUSCULAR HEMOGLOBIN 29 pg (27.0-31.0); MEAN CORPUSCULAR HGB CONC 33 g/dl (33.0-37.0); MEAN PLATELET VOLUME 9.1 fl (7.4-10.4); PLATELET COUNT 535 K/mm3 (130-400); RED BLOOD COUNT 4.67 M/mm3 (4.20-5.60); REDCELL DISTRIBUTION WIDTH-CV 17.2 % (11.5-14.5)
[2019-09-08 14:55] LABS: CALCIUM 9.4 mg/dL (8.4-10.2); CREATININE, serum 0.71 (0.66-1.25); POTASSIUM 4.6 mmol/L (3.4-5.0)
[2019-09-08 16:04] LABS: BAND 10 % (0-10); LYMPHOCYTE 5 % (20.0-51.0); METAMYELOCYTE 1 % (0-0); MYELOCYTE 1 % (0-0); NEUTROPHILS 81 % (42.0-75.2)
[2019-09-08 16:05] LABS: ANISOCYTOSIS 1+; PLATELET ESTIMATE INCREASED (NORMAL)
--- NOTE | 2019-09-08 19:24 | NUR ---
Bedside shift report given to TAMIKO Andrade and care handed over at this time.
[2019-09-09] VITALS (7 sets, daily range): BP systolic 121–149; BP diastolic 69–90; PULSE 67–90; TEMP 97.4–98.3
--- NOTE | 2019-09-09 01:22 | NUR ---
PATIENT TRASNSFERRED TO MEDICAL FLOOR BY WHEEL CHAIR, ON AT 8 L
--- NOTE | 2019-09-09 01:31 | NUR ---
PATIENT ARRIVED TO MEDICAL UNIT. THIS NURSE IS TAKING OVER CARE. HE ARRIVED VIA WC. PATIENT STATED THAT HE WAS FEELING SHORT OF BREATH. PATIENT IS ON 8L AND 92%. PATIENT IS ABLE TO TELL ME THE YEAR AND BUT UNSURE OF WHERE HE IS OR PRESIDENT. PATIENT IS VERY TALKATIVE AND WOULD MAKE YOU BELIEVE THAT HE IS ORIENTATED. LUNG SOUNDS ARE DIMINISHED IN ALL FEILDS. PULSES ARE PRESENT. BLE ARE DISCOLORED WITH SOME SCRATCHES NOTED TO THE SHINS. PATIENT IS ORIENTATED TO THE ROOM. BED ALARM ON AND CALL LIGHT WITHIN REACH.
--- NOTE | 2019-09-09 02:59 | NUR ---
CALLED AN NOTIFIED Naseem SANTIAGO OF THE PATIENT HAVING AN 8 BEAT RUN OF PAT PER TELEY. MORNING LABS TO BE DONE NOW AND ADD MAG AND PHOS. BLOOD PRESSURE IS 125/69, 99%, AND PULSE OF 67 BPM. PATIENT DENIES ANY CHEST PAIN, SHORTNESS, OR DIZZINESS.
[2019-09-09 03:10] LABS: BASO % 0.2 % (0.0-2.0); EOS # 0.1 (0.0-0.7); GRAN # 9.9 (1.4-6.5); GRAN % 86.2 % (42.2-75.2); HEMATOCRIT 37.9 % (42.0-52.0); HEMOGLOBIN 12.7 g/dl (13.5-18.0); LYMPH # 0.5 (1.2-3.4); LYMPH % 4.7 % (20.0-51.0); MEAN CELL VOLUME 87 fl (80.0-100.0); MEAN CORPUSCULAR HEMOGLOBIN 29 pg (27.0-31.0); MEAN CORPUSCULAR HGB CONC 34 g/dl (33.0-37.0); MEAN PLATELET VOLUME 9.1 fl (7.4-10.4); MONO # 0.6 (0.1-0.6); MONO % 4.9 % (1.7-9.3); PLATELET COUNT 533 K/mm3 (130-400); RED BLOOD COUNT 4.36 M/mm3 (4.20-5.60); REDCELL DISTRIBUTION WIDTH-CV 16.9 % (11.5-14.5)
[2019-09-09 03:21] LABS: ALBUMIN 3.4 gm/dL (3.5-5.0); BILIRUBIN,TOTAL 0.5 mg/dL (0.0-1.0); CALCIUM 9.2 mg/dL (8.4-10.2); CREATININE, serum 0.78 (0.66-1.25); MAGNESIUM 2.3 mg/dL (1.6-2.3); PHOSPHOROUS 3.1 mg/dL (2.5-4.5); POTASSIUM 5.1 mmol/L (3.4-5.0); TOTAL PROTEIN 6.4 gm/dL (6.4-8.2)
--- NOTE | 2019-09-09 03:25 | NUR ---
CRITICAL LAB OF 88 FOR CHLORIDE. CALLED Naseem SANTIAGO AND NO ANSWER, WILL TRY AGAIN IN A COUPLE MINUTES
--- NOTE | 2019-09-09 04:23 | NUR ---
PATIENT IS RESTING IN BED WITH HOB ELEVATED
--- NOTE | 2019-09-09 04:26 | NUR ---
TELEY CALLED AND THE PATIENT WENT INTO SVT FOR A 11 BEAT RUN WITH A RATE OF 150. BP 121/74. A PAMELA TO BE NOTIFIED
--- NOTE | 2019-09-09 04:54 | NUR ---
patient came up to medical from the ICU in the middle of the shift. patient was able to tell me his birthday and the year but could not tell me anything else other than that. patient then had an 8 beat run of PAT where Naseem Leggett got morning labs on the patient and NORMAL SALINE was started. patient then had a 11 beat run of SVT with rates in the 150's. A Oleksandr 5mg of lopressor to be given now X1 to help settle his heart down. patient has been asleep through these episodes and blood pressure has not been affected. patient denies any other needs at this time. will report off to day shift upon their arrival
--- NOTE | 2019-09-09 09:00 | NUR ---
Assessment complete. Patient sitting at side of bed. Frustrated with his care but could not clearly state why. He was under the impression that we had stolen his things and feels as though we are treating him as a "convict". I explained to him he was transferred to the medical floor but he was not following. IV site CD&I, IV fluids running. He denies pain or discomfort. He is alert and partially oriented at this time. Fall precautions are in place. no other needs. Call light in reach.
--- NOTE | 2019-09-09 09:30 | NUR ---
I went in and spoke with Mr Meeks at bedside. He tells me he is not convinced that he has cancer but feels he "may have already been treated for it at the lab". He states he would want treatment but at this point I am not at all sure he is understanding what I am talking about. He feels that returning to [facility] would be ok with him. I will try to reach his daughter Sayra this morning with social media director Mandi also director international.
[2019-09-09 09:32] LABS: PATHOLOGY DIFF REVIEW OK
--- NOTE | 2019-09-09 09:40 | NUR ---
Attempted to call Daughter Sayra Meeks at [phone]. She did not answer so I left a message requesting a call back.
--- NOTE | 2019-09-09 10:17 | NUR ---
Attempted to call Sayra Meeks again and again left message requesting call back.
--- NOTE | 2019-09-09 10:38 | NUR ---
ALANA faxed updates to Juan at [employer].
--- NOTE | 2019-09-09 10:38 | NUR ---
ALANA and [facility] care nurse attempted to contact the patient's daughter, Sayra, left message.
--- NOTE | 2019-09-09 12:28 | NUR ---
First visit from the home paraprofessional. No needs right now.
--- NOTE | 2019-09-09 12:52 | NUR ---
Attempted to speak with pt's daughter, Sayra Meeks, again today. She did answer her phone and clearly stated"Quit calling me and leaving messages" "I can't do anything until [employer] does what they need to do. Quit leaving me F-cking messages--I've done everything that I can do". She then stated to send her father to [facility] and hung up! I will let social media content specialist know the results of this phone call but am getting no where with this daughter.
--- NOTE | 2019-09-09 13:54 | NUR ---
Sayra, the patient's daughter contacted [facility] care nurse and told her not to call her again and to just send the patient to [place] [facility] then hung up on her. ALANA contacted Juan to inform him of this conversation. Juan reports Talita and the DON will contact Sayra to discuss hospice and he will contact ALANA once that conversation is had. Will continue to monitor.
--- NOTE | 2019-09-09 14:40 | NUR ---
Juan from [facility] reports that the patient's daughter, Sayra was agreeable to [facility] for the patient. Juan provided [facility]'s admission coordinator, Landy Sigala ([phone]) to get fax number. Juan reports they could take the patient back as early as tomorrrow. ALANA contacted Landy, left message. ALANA informed team. Will continue to monitor.
--- NOTE | 2019-09-09 15:10 | NUR ---
Landy from [facility] reports her fax # [phone] and she reports they have been following the patient. ALANA faxed referral. Will continue to monitor.
--- NOTE | 2019-09-09 17:20 | NUR ---
Pt had a good day. He is intermittently confused and usually an angry confusion in which he takes out on staff stating that "we are not caring for him" or "stealing his things". When he is not upset he is pleasant. Iv was leaking at one point but I rewrapped with fresh coban and have no had an issue since. Pallative care consult was done and pallative care is in place. Pt has denied pain all day. he has urinated in the urinal multiple times today. Large scrotal hernia noted. no other needs at this time. Call light in reach.
--- NOTE | 2019-09-09 20:00 | NUR ---
At time of assessment, patient is awake sitting in bed. He is oriented to self and birthdate but asks "how old am I?". He knows where he is but is forgettful and impulsive, despite being reoriented to the call button and use of nasal cannula. His lung sounds have audible wheezes in all lobes on expiration and inspiration. His heart sounds are normal/regular. He does not have any edema but his extremities have a reddish/purple discoloration. He does not complain of any pain. Will continue to monitor.
[2019-09-10 00:19] VITALS: BP 112/73; PULSE 73; TEMP 97.6
[2019-09-10 04:01] VITALS: BP 122/74; PULSE 64; TEMP 98
--- NOTE | 2019-09-10 04:48 | NUR ---
Patient has been impulsive and forgettful throughout the night but is currently sleeping. His L forearm IV started leaking so a new IV was initiated in his R forearm, due to ordered IV solu-medrol. He is still only partially oriented and requires frequent reorientation. He is still on at 6L via high flow nasal cannula, which he takes off often due to confusion. Will continue to reorient and monitor as needed.
[2019-09-10 07:43] VITALS: BP 120/76; PULSE 66; TEMP 97.6
[2019-09-10] MEDS ORDERED: IPRATROPIUM BROM3 M1 IH (09:16)
[2019-09-10] MEDS ORDERED: ROXANOL 20MG20 MG/ML SL (09:16)
[2019-09-10] MEDS ORDERED: DULCOLAX S10 MG/SUPP RC (09:17)
[2019-09-10] MEDS ORDERED: ATIVAN 1MG T1 MG/TAB PO (09:17)
[2019-09-10] MEDS ORDERED: TRANSDERM-0.5 MG/21 TD (09:17)
[2019-09-10] MEDS ORDERED: ARTIFICIAL TEAR15 M7 OP (09:18)
--- NOTE | 2019-09-10 09:25 | NUR ---
SW presented the IM form to the patient. The patient understood and signed the form.
--- NOTE | 2019-09-10 09:55 | NUR ---
SW attempted to contact the patient's daughter, left message. Hospitalist wanted to discuss the patient going back to [facility] with hospice. Will continue to monitor.
[2019-09-10 11:26] VITALS: BP 134/74; PULSE 77; TEMP 97.6
--- NOTE | 2019-09-10 11:27 | NUR ---
The patient is to tentatively discharge today, 09/09 to [place] [facility] with [facility]. Hospitalist spoke to the patient's daughter, Sayra and she was in agreeance with the patient returning to [facility] with hospice. Sayra did not return my call. Juan from [facility] reports they can transport the patient at 1215. ALANA contacted Landy from [facility] to inform her of transport time. All were in agreeance. ALANA faxed discharge orders. There are no additional needs at this time.
--- NOTE | 2019-09-10 11:27 | NUR ---
Pt assessment completed and charted. Medications administered per JUL. Pt is alert, partially oriented. Pt was on 6L HF NC. RT in to see pt, bumped O2 up to 10L NC. Pt independent in room w/ cane. Pt has RFA INT IV that flushes w/o complications. Pt denies any pain. Pt has labored/shallow breathing. Pt denies any concerns at this time. Pt to discharge this afternoon.
[2019-09-10 11:39] VITALS: BP 134/74; PULSE 77; TEMP 97.6
--- NOTE | 2019-09-10 13:13 | NUR ---
Pt escorted out via WC w/ 10L HF NC. Automatic Print Developer from [facility] at ER entrance. No further needs at this time. RWR INT IV dc'd w/ catheter tip intact and no complications.
== END 2019-09-10 12:45 | disposition hospice, inpatient (51) | DRG 180 ==
LOC: COL.ER 22:37 → ICU 09-05 00:18 → IMCU 09-06 18:41 → MEDICAL 09-09 01:30
PROVIDERS: Emergency Medicine; Physician Assistant; ADMIT Student in an Organized Health Care Education/Training Program
DX: C34.91 Malignant neoplasm of unspecified part of right bronchus or lung (principal); J96.22 Acute and chronic respiratory failure with hypercapnia; I21.A1 Myocardial infarction type 2; J96.21 Acute and chronic respiratory failure with hypoxia; C79.70 Secondary malignant neoplasm of unspecified adrenal gland; E46 Unspecified protein-calorie malnutrition; I50.32 Chronic diastolic (congestive) heart failure; Z68.1 Body mass index [BMI] 19.9 or less, adult; E87.1 Hypo-osmolality and hyponatremia; R65.10 Systemic inflammatory response syndrome (SIRS) of non-infectious origin without acute organ dysfunction; Z51.5 Encounter for palliative care; K40.90 Unilateral inguinal hernia, without obstruction or gangrene, not specified as recurrent; E87.5 Hyperkalemia; I11.0 Hypertensive heart disease with heart failure; J44.9 Chronic obstructive pulmonary disease, unspecified; E11.9 Type 2 diabetes mellitus without complications; D47.3 Essential (hemorrhagic) thrombocythemia; F03.90 Unspecified dementia, unspecified severity, without behavioral disturbance, psychotic disturbance, mood disturbance, and anxiety; R53.81 Other malaise; F17.210 Nicotine dependence, cigarettes, uncomplicated; Z79.82 Long term (current) use of aspirin; Z79.52 Long term (current) use of systemic steroids; Z79.84 Long term (current) use of oral hypoglycemic drugs
CPT/HCPCS: 99223-AI; 99233-AI; 99239; J0456; J0696; J1644; J1815; J2920; J7030; J7050; J7512